=== PATIENT | female | born 1980 | race Caucasian/White ===

== ENCOUNTER 2019-11-10 20:21 | Emergency (ER) | payer SELFPAY ==
[2019-11-10] VITALS (7 sets, daily range): BP systolic 143–193; BP diastolic 65–94; PULSE 80–93; RESP 16–18; TEMP 36.7; O2SAT 94–99; BMI 33.5
--- NOTE | 2019-11-10 20:35 | DI.CT.S_ITS ---
PROCEDURE: CT ABDOMEN PELVIS W CON INDICATIONS: severe RLQ pain with rebound, NOT TECHNIQUE: After the administration of intravenous contrast, 5 mm thick sections acquired from the diaphragm to the symphysis. 5 mm coronal and sagittal reformats were acquired. For radiation dose reduction, the following was used: automated exposure control, adjustment of mA and/or kV according to patient size. Patient reportedly developed itchiness following contrast administration. COMPARISON: None. FINDINGS: Image quality: Excellent. ABDOMEN: Lung bases: Lung bases are clear. Heart size is normal. Solid organs: There is hypoattenuation of the liver consistent with fatty infiltration. The gallbladder appears within normal limits without calcified gallstones. Biliary system is non-dilated. Pancreas enhances normally. No peripancreatic fat stranding or fluid collections. No pancreatic duct dilatation. The spleen is normal in size. No adrenal nodules. Kidneys demonstrate no hydronephrosis. Peritoneum and bowel: Bowel loops demonstrate normal wall thickness and caliber. There are surgical sutures along the cecum likely from prior appendectomy. No pericecal inflammatory changes. There is colonic diverticulosis without acute diverticulitis. No free fluid or air. Nodes and vessels: No retroperitoneal or mesenteric adenopathy by size criteria. Aorta and inferior vena cava are normal in size. Miscellaneous: No ventral hernias. PELVIS: Genitourinary: Bladder wall thickness is normal. Miscellaneous: No inguinal hernias or adenopathy. Bones: No suspicious bony lesions. No vertebral body compression fractures. IMPRESSION: 1. No definite acute intra-abdominal abnormality. Specifically, no evidence of appendicitis. 2. Colonic diverticulosis without acute diverticulitis. Dictated by: Sha Nichols M.D. on 11/10/2019 at 21:57 Approved by: Sha Nichols M.D. on 11/10/2019 at 21:59
[2019-11-10] MEDS: ONDANSETRON 4 MG/2 ML INJ IV (20:39)
[2019-11-10] MEDS: HYDROMORPHONE 0.5 MG INJ IV ×3 (20:40→23:17)
[2019-11-10] MEDS: SODIUM CHLORIDE 0.9% 1,000 ML 1000 ML IV (20:40)
[2019-11-10 20:47] LABS: Add Manual Diff / Slide Review NO; Basophils Absolute Auto 100 /uL (0-100); Basophils Percent Auto 0.9 % (0-2); Eosinophils Absolute Auto 100 /uL (0-450); Eosinophils Percent Auto 1.3 % (2-4); Hematocrit 34.1 % (36-46); Hemoglobin 11.3 g/dL (12.0-16.0); Lymphocytes Absolute Auto 1900 /uL (1100-4500); Lymphocytes Percent Auto 30.4 % (25-40); Mean Corpuscular Hemoglobin 28.2 PG (26-34); Mean Corpuscular Volume 85.5 fL (80-100); Monocytes Absolute Auto 600 /uL (0-900); Monocytes Percent Auto 10.2 % (3-14); Neutrophils Absolute Auto 3600 /uL (1500-7000); Neutrophils Percent Auto 57.2 % (50-75); Platelet Count 340 X10^3/uL (150-400); Red Blood Cell Count 3.99 X10^6/uL (4.0-5.2); Red Cell Distribution Width 15.5 % (11.6-14.8); White Blood Cell Count 6.3 X10^3/uL (4.5-11.0)
[2019-11-10 20:56] LABS: Alanine Aminotransferase 46 IU/L (<35); Albumin 4.2 g/dL (3.5-5.0); Albumin Globulin Ratio 1.3 (1.0-2.8); Alkaline Phosphatase 91 U/L (38-126); Aspartate Aminotransferase 44 IU/L (14-36); BUN Creatinine Ratio 12.8 (6-22); Bilirubin Total 0.4 mg/dL (0.2-1.3); Blood Urea Nitrogen 11 mg/dL (7-17); Calcium 9.3 mg/dL (8.4-10.2); Carbon Dioxide 24 mmol/L (22-32); Chloride 106 mmol/L (98-107); Estimated Glomerular Filt Rate > 60.0 mL/min (>60); Globulin 3.2 g/dL (1.7-4.1); Glucose 208 mg/dL (70-100); HEMOLYSIS 24 (0-50); Lipase 88 U/L (23-300); Potassium 3.8 mmol/L (3.4-5.1); Sodium 136 mmol/L (137-145); Total Protein 7.4 g/dL (6.3-8.2)
--- NOTE | 2019-11-10 21:19 | ED.ABDPAIN ---
HPI - Abdominal Pain General Chief Complaint: Abdominal Pain Stated Complaint: abd pain and vomiting Time Seen by Provider: 11/10/19 20:34 Source: patient Mode of arrival: Ambulatory Limitations: no limitations History of Present Illness HPI narrative: 39F nonsmoker without significant medical problems presents with a chief complaint of gradually worsening right lower quadrant pain over the past 24 hours. She states that started as a generalized abdominal discomfort and over the course of the day has become much more significant in the right lower quadrant. She states it hurts when she moves and improves with rest. She denies radiation of the pain. She has nausea and a few episodes of vomiting. She denies any chance of and denies any dysuria, frequency or urgency. She has had no fever or chills. MD complaint: abdominal pain Onset (ago): hour(s) Pain Consistency: constant Location: RLQ Severity: moderate Quality: aching Radiation: RLQ Relieving factors: rest Exacerbating factors: movement Associated symptoms: nausea and vomiting Related Data Previous Rx's Medication Instructions Recorded doxycycline hyclate 100 mg PO BID #28 tab 11/10/19 metronidazole 500 mg PO BID 14 Days #28 tab 11/10/19 Allergies Allergy/AdvReac Type Severity Reaction Status Date / Time metoclopramide [From Reglan] Allergy Verified 11/10/19 20:41 NSAIDS (Non-Steroidal Allergy Verified 11/10/19 20:41 Anti-Inflamma Review of Systems Constitutional Constitutional: Denies chills, Denies fatigue, Denies fever(s), Denies frequent falls, Denies lethargy and Denies weakness Eyes Eyes: Denies change in vision, Denies eye discharge, Denies irritation and Denies loss of vision ENT Ears, Nose, Mouth, and Throat: Denies change in voice, Denies dizziness, Denies neck pain, Denies sore throat and Denies throat swelling Cardiovascular Cardiovascular: Denies chest pain, Denies irregular heart rhythm, Denies lightheadedness, Denies palpitations, Denies dyspnea, Denies dyspnea on exertion and Denies orthopnea Respiratory Respiratory: Denies cough, Denies dyspnea, Denies dyspnea on exertion and Denies wheezing Gastrointestinal Gastrointestinal: Reports abdominal pain, Denies change in bowel habits, Denies diarrhea, Reports nausea and Reports vomiting Musculoskeletal Musculoskeletal: Denies neck pain and Denies numbness Integumentary/Breasts Skin/Breast: Denies pruritus, Denies erythema, Denies rash and Denies wounds Neurologic Neurologic: Denies behavioral changes, Denies confusion, Denies dizziness, Denies frequent falls, Denies loss of vision, Denies numbness and Denies weakness Psychiatric Psychiatric: Denies anxiety, Denies behavioral changes, Denies confusion, Denies depression, Denies homicidal ideation and Denies suicidal ideation Endocrine Endocrine: Denies fatigue, Denies flushing and Denies palpitations Hematologic/Lymphatic Hematologic/Lymphatic: Denies easy bruising Allergic/Immunologic Allergic/Immunologic: Denies urticaria, Denies throat swelling and Denies wheezing Patient History Social History Smoking Status: Never smoker Smoking Status: Never smoker alcohol intake frequency: holidays/special occasions only Alcohol type: wine Substance Use Type: does not use Exam Narrative Exam Narrative: GENERAL: [39] year old patient appears stated age. Well-nourished, well-developed patient, in moderate distress. Obviously uncomfortable HEAD: Atraumatic. Normocephalic. EYES: Pupils equal round and reactive. Extraocular motions intact. No scleral icterus. No injection or drainage. ENT: Nose without bleeding, purulent drainage. Throat without erythema, tonsillar hypertrophy or exudate. Airway patent. NECK: Trachea midline. Non tender CARDIOVASCULAR: Regular rate and rhythm without murmurs, gallops, or rubs. RESPIRATORY: Clear to auscultation. Breath sounds equal bilaterally. No wheezes, rales, or rhonchi. GASTROINTESTINAL: Abdomen soft, significantly tender in the right lower quadrant with local peritonitis and rebound. Positive psoas, obturator, heel tap PELVIC: mild purulent cervical discharge. No foul smell. No CMT. Pain in RLQ only when pressing on belly, no adnexal tenderness EXTREMITIES: No edema or joint tenderness. BACK: Nontender without deformity or crepitance. No flank tenderness. NEURO: AOx3. SKIN: No rash or erythema of visible areas Initial Vital Signs Initial Vital Signs: Vital Signs Pulse Rate 93 H 11/10/19 20:30 Blood Pressure 171/81 H 11/10/19 20:30 Pulse Oximetry 99 11/10/19 20:30 Course Course Course Narrative: patient feeling much better after above stated therapies. Multiple etiologies considered including TOA, appendicitis, torsion, SBO vs. other. Pelvic exam notes scant discharge, PID considered likely. Return precautions given and questions answered to her apparent satisfaction. Discussed admission, but patient would very much prefer to go home and assures me she will return for worsening symptoms Orders Ordered: ED Orders 11/10/19 20:30 Complete Blood Count AUTO DIFF Stat Comprehensive Metabolic Panel Stat Lipase Stat Test Serum,Qual Stat 11/10/19 20:35 CT abdomen pelvis w con Stat 11/10/19 22:19 US pelvic limited Stat 11/10/19 22:30 Genital Culture Stat PREETI Prep Stat 11/10/19 23:07 COVID19 -ED/INPAT/OR/L&D Stat Discontinued Medications Hydrocodone Bitart/Acetaminophen (Vicodin 5/325 Prepack) 1 bottle MISC SEEINSTR ONE Stop: 11/10/19 23:31 Last Admin: 11/10/19 23:41 Dose: 1 bottle Documented by: TONG Diphenhydramine HCl (Benadryl) 25 mg IV NOW ONE Stop: 11/10/19 21:37 Last Admin: 11/10/19 21:52 Dose: 25 mg Documented by: EUNICE Doxycycline Hyclate (Vibramycin) 100 mg PO NOW ONE Stop: 11/10/19 23:32 Last Admin: 11/10/19 23:41 Dose: 100 mg Documented by: TONG Hydromorphone HCl (Dilaudid) 0.5 mg IV NOW ONE Stop: 11/10/19 20:35 Last Admin: 11/10/19 20:40 Dose: 0.5 mg Documented by: BERTRAMOTEM Hydromorphone HCl (Dilaudid) 0.5 mg IV NOW ONE Stop: 11/10/19 21:54 Last Admin: 11/10/19 22:01 Dose: 0.5 mg Documented by: EUNICE Hydromorphone HCl (Dilaudid) 0.5 mg IV NOW ONE Stop: 11/10/19 23:04 Last Admin: 11/10/19 23:17 Dose: 0.5 mg Documented by: EUNICE Sodium Chloride (Normal Saline 0.9%) 1,000 mls @ 1,000 mls/hr IV BOLUS ONE Stop: 11/10/19 21:33 Last Infusion: 11/10/19 23:21 Dose: 0 mls/hr Documented by: Admin: 11/10/19 20:40 Dose: 1,000 mls/hr Documented by: CARRIE Famotidine (Pepcid) 20 mg in 50 mls @ 200 mls/hr IV NOW ONE Stop: 11/10/19 21:50 Last Infusion: 11/10/19 22:14 Dose: 0 mls/hr Documented by: Admin: 11/10/19 21:53 Dose: 200 mls/hr Documented by: EUNICE Ceftriaxone Sodium/Dextrose (Rocephin) 1 gm in 50 mls @ 100 mls/hr IV NOW ONE Stop: 11/10/19 23:03 Last Admin: 11/10/19 23:00 Dose: 100 mls/hr Documented by: EUNICE Doxycycline Hyclate 100 mg/ (Sodium Chloride) 100 mls @ 100 mls/hr IV NOW ONE Stop: 11/10/19 22:35 Methylprednisolone (Solu-Medrol 125 Mg Vial) 125 mg IV NOW ONE Stop: 11/10/19 21:37 Last Admin: 11/10/19 21:51 Dose: 125 mg Documented by: EUNICE Ondansetron HCl (Zofran) 4 mg IV NOW ONE Stop: 11/10/19 20:35 Last Admin: 11/10/19 20:39 Dose: 4 mg Documented by: CARRIE Ondansetron HCl (Zofran Odt Prepack) 1 bottle MISC SEEINSTR ONE Stop: 11/10/19 23:31 Last Admin: 11/10/19 23:41 Dose: 1 bottle Documented by: TONG Reevaluation(s) Reevaluation #1: patient developed significant itching after the administration of IV contrast. She has no trouble breathing or swallowing and has no swelling of tongue, lips, throat. She has no rash or hives. Benadryl, Solumedrol, and Pepcid ordered. Vital Signs Vital signs: Vital Signs - 8 hr 11/10/19 20:30 11/10/19 20:31 11/10/19 21:30 Temperature 98.1 F Pulse Rate 93 H 89 Respiratory Rate 16 Blood Pressure 171/81 H 171/81 H 154/94 H Pulse Oximetry 99 98 11/10/19 22:00 11/10/19 22:30 11/10/19 23:30 Temperature Pulse Rate 86 80 90 Respiratory Rate 18 Blood Pressure 165/82 H 143/65 H 193/86 H Pulse Oximetry 96 96 94 11/10/19 23:48 Temperature Pulse Rate Respiratory Rate Blood Pressure 176/72 H Pulse Oximetry MDM - Abdominal Pain Lab Data Result diagrams: 11/10/19 20:30 11/10/19 20:30 Labs: Lab Results 11/10/19 11/10/19 11/10/19 Range/Units 20:30 20:30 20:30 WBC 6.3 (4.5-11.0) X10^3/uL RBC 3.99 L (4.0-5.2) X10^6/uL Hgb 11.3 L (12.0-16.0) g/dL Hct 34.1 L (36-46) % MCV 85.5 (80-100) fL MCH 28.2 (26-34) PG MCHC 33.0 (30-36) % RDW 15.5 H (11.6-14.8) % Plt Count 340 (150-400) X10^3/uL Neut % (Auto) 57.2 (50-75) % Lymph % (Auto) 30.4 (25-40) % [place] % (Auto) 10.2 (3-14) % Eos % (Auto) 1.3 L (2-4) % Baso % (Auto) 0.9 (0-2) % Neut # (Auto) 3600 (1541-9568) /uL Lymph # (Auto) 1900 (1691-6668) /uL [place] # (Auto) 600 (0-900) /uL Eos # (Auto) 100 (0-450) /uL Baso # (Auto) 100 (0-100) /uL Sodium 136 L (137-145) mmol/L Potassium 3.8 (3.4-5.1) mmol/L Chloride 106 (98-107) mmol/L Carbon Dioxide 24 (22-32) mmol/L BUN 11 (7-17) mg/dL Creatinine 0.86 (0.52-1.04) mg/dL Estimated GFR > 60.0 (>60) mL/min BUN/Creatinine Ratio 12.8 (6-22) Glucose 208 H (70-100) mg/dL Calcium 9.3 (8.4-10.2) mg/dL Total Bilirubin 0.4 (0.2-1.3) mg/dL AST 44 H (14-36) IU/L ALT 46 H (<35) IU/L Alkaline Phosphatase 91 (38-126) U/L Total Protein 7.4 (6.3-8.2) g/dL Albumin 4.2 (3.5-5.0) g/dL Globulin 3.2 (1.7-4.1) g/dL Albumin/Globulin Ratio 1.3 (1.0-2.8) Lipase 88 (23-300) U/L Serum , Qual Negative (Negative) Point of care testing: Urine Dip Bedside Urine Glucose 250 mg/dl Bedside Urine Bilirubin - Negative Bedside Urine Ketone - Negative Urine Specific [place] 1.015 Bedside Urine Occult Blood - Negative Bedside Urine pH 6.0 Bedside Urine Protein - Negative Bedside Urine Urobilinogen - Negative Bedside Urine Nitrite - Negative Bedside Urine Leukocytes - Negative Esterase Discharge Plan Departure Patient Disposition: Home Clinical Impression: Acute right lower quadrant pain, Acute pelvic inflammatory disease (PID) Discharge Date/Time: 11/10/19 23:58 Instructions: DI for Pelvic Inflammatory Disease (PID), DI for Abdominal Pain-Adult Activity Restrictions/Additional Instructions: *You have been diagnosed with [right lower quadrant pain, likely due to pelvic inflammatory disease. No evidence to suggest kidney stone, appendicitis, ovarian problem.] *What to do: *Take medications as directed *Follow up with your primary care provider in 2-3 days, call for an appointment. Let them know you were seen in the Emergency Department and that we ask that you be seen in follow up *Return to ER if you should have any new, worsening or concerning symptoms, such as [worsening pain, persistent vomiting, fever over 101, shaking chills or other bothersome symptoms] Prescriptions: New doxycycline hyclate 100 mg tablet 100 mg PO BID Qty: 28 RF: 0 metronidazole 500 mg tablet 500 mg PO BID 14 Days Qty: 28 RF: 0 Referrals: [facility] [Outside]
[2019-11-10] MEDS: methylPREDNISolone 125 MG/2 ML VIAL IV (21:51)
[2019-11-10] MEDS: diphenhydrAMINE 50 MG/ML VIAL 25 MG IV (21:52)
[2019-11-10] MEDS: FAMOTIDINE 20 MG/50 ML PIGGYBACK 200 MG IV (21:53)
--- NOTE | 2019-11-10 22:19 | DI.US.S_ITS ---
PROCEDURE: US PELVIC LIMITED INDICATIONS: severe RLQ Pain, torsion? TECHNIQUE: Real-time transabdominal scanning was performed of the pelvic organs, with image documentation. COMPARISON: [facility], CT, CT ABDOMEN PELVIS W CON, 11/10/2019, 20:57. FINDINGS: Uterus: Uterus is normal in size at 6.4 x 2.3 x 3.1 cm. Endometrium measures 2 mm in combined thickness. Ovaries: The right ovary measures 1.9 x 1.3 x 1.5 cm. The left ovary measures 2.2 x 1.9 x 1.4 cm. The ovaries have a normal sonographic appearance. No adnexal masses are seen. Normal appearing arterial flow is confirmed to each ovary. Other: No free pelvic fluid. Limited scanning through the kidneys shows no hydronephrosis. IMPRESSION: Negative for ovarian torsion. Normal pelvic ultrasound. Note: No significant discrepancy from the preliminary report. Dictated by: Sp Souza M.D. on 11/11/2019 at 7:33 Approved by: Sp Souza M.D. on 11/11/2019 at 7:34
[2019-11-10 22:56] LABS: Pregnancy Test Serum,Qual Negative (Negative)
[2019-11-10] MEDS: CEFTRIAXONE 1 GM/50 ML FROZ.PIGGY IV (23:00)
[2019-11-10] MEDS: ONDANSETRON 4 MG ODT PREPACK 1 BOTTLE MISC (23:41)
[2019-11-10] MEDS: DOXYCYCLINE HYCLATE 100 MG TABLET PO (23:41)
[2019-11-10] MEDS: HYDROCODONE/ACET 5/325 PREPACK 1 BOTTLE MISC (23:41)
--- NOTE | 2019-11-23 21:43 | PC.NURSE ---
Addendum entered by Pedro Luis Etienne 11/24/19 19:13: Rocephin 1 gm infused at 2330. Original Note: late entry: fluids stopped at 2358
== END 2019-11-10 23:58 | disposition home or self-care (01) ==
PROVIDERS: Emergency Provider Emergency Medicine
DX: N73.9 Female pelvic inflammatory disease, unspecified (principal); R10.31 Right lower quadrant pain; R11.2 Nausea with vomiting, unspecified
CPT/HCPCS: 74177; 76830; 76857; 80053; 81003; 83690; 84703; 85025; 87070; 87077; 87205; 87220; 87252; 96361; 96365; 96375; 96376; 99284; J1170; J1200; J2405; J2930; Q9967